=== PATIENT | male | born 2000 | race Caucasian/White ===

== ENCOUNTER 2023-07-29 09:31 | Emergency (ER) | payer OTHER ==
[~2023-07-29] VITALS: Ht 170.2 cm; Wt 73.0 kg
[2023-07-29 09:52] VITALS: BP 149/83; PULSE 94; RESP 18; TEMP 98; O2SAT 98
[2023-07-29] MEDS ORDERED: ACET-9882 PO (12:15)
[2023-07-29] MEDS ORDERED: PHEN177S23 PO (12:15)
[2023-07-29] MEDS ORDERED: IBUPROFEN 600 MG TAB PO ONE (12:15)
[2023-07-29] MEDS ORDERED: ACETAMINOPHEN EXTRA STRENGTH 500 MG TAB PO ONE (12:15)
[2023-07-29] MEDS ORDERED: IBUP-2213 PO (12:15)
[2023-07-29 12:48] LABS: FLU A ANTIGEN negative (NEGATIVE); FLU B ANTIGEN NEGATIVE (NEGATIVE)
== END 2023-07-29 12:21 | disposition home or self-care (01) ==
LOC: MED 09:31
DX: J06.9 Acute upper respiratory infection, unspecified (principal); Z20.822 Contact with and (suspected) exposure to COVID-19; Z79.899 Other long term (current) drug therapy
CPT/HCPCS: 99283